=== PATIENT | female | born 1945 | race Caucasian/White ===

== ENCOUNTER 2020-02-07 09:00 | Emergency (ER) | payer OTHER, BC ==
--- NOTE | 2020-02-07 09:45 | PDOC ---
History of Present Illness - General Chief Complaint: Injury Stated Complaint: FALL Time Seen by Provider: 02/07/20 09:45 History Source: Patient Exam Limitations: No Limitations Past History - Medical History Allergies/Adverse Reactions: Allergies Allergy/AdvReac Type Severity Reaction Status Date / Time No Known Drug Allergies Allergy Unverified 05/01/13 15:44 Home Medications: Ambulatory Orders Amlodipine Besylate 10 mg PO DAILY 02/07/20 Atorvastatin Ca [Lipitor] 10 mg PO HS 02/07/20 Ibandronate Sodium [Boniva] 150 mg PO DAILY 02/07/20 Levothyroxine [Synthroid -] 75 mcg PO ASDIR 02/07/20 Montelukast Sodium [Singulair] 10 mg PO DAILY 02/07/20 COPD: No HTN: Yes Seizures: Yes - Immunization History Immunization Up to Date: No - Psycho-Social/Smoking History Smoking History: Never smoked - Substance Abuse Hx (Audit-C & DAST Scrn) How often the patient has a drink containing alcohol: Never Score: In Men: 4 or > Positive; In Women: 3 or > Positive: 0 Screen Result (Pos requires Nsg. Audit-10AR): Negative *Physical Exam - Vital Signs Last Vital Signs Temp Pulse Resp BP Pulse Ox 99 F 74 18 145/74 100 02/07/20 09:15 02/07/20 09:15 02/07/20 09:15 02/07/20 09:15 02/07/20 09:15
[2020-02-07 09:54] VITALS: BP 145/74; PULSE 74; TEMP 99; BMI 26.5
[2020-02-07] MEDS ORDERED: IBUPROFEN 600 MG TABLET (FP) PO ONE ×2 (10:28→10:32)
--- NOTE | 2020-02-07 11:58 | PDOC ---
History of Present Illness - General Chief Complaint: Injury Stated Complaint: FALL Time Seen by Provider: 02/07/20 09:45 History Source: Patient Exam Limitations: No Limitations - History of Present Illness Initial Comments: 02/07/20 11:53 75-year-old female brought in by EMS history of hypertension, hyperlipidemia, thyroid disorder presents complaining of right knee pain status post mechanical slip and fall in her basement at approximately 8:30 AM today. States that she landed directly onto her right knee, denies head strike, neck pain, back pain, chest pain, abdominal pain, nausea, headache, LOC or any other injuries. Patient did not take any pain medication prior to arrival. ROS: Right knee pain PE: GENERAL: well-appearing, NAD HEAD: NCAT EYES: Pupils equal, round and reactive to light, sclera anicteric, conjunctiva clear ENT: pharynx: no erythema, no exudate, uvula midline NECK: supple CHEST: nontender RESP: clear, no w/r/r CARDIO: rrr, no m/g/r ABD: +BS, soft, nontender, non distended BACK: no midline spinal ttp, no CVAT EXTREMITIES: Right knee moderate swelling, bony tenderness to palpation over the patella, patient unable to raise her right lower extremity without bending her knee, no ecchymosis noted, soft compartments above and below the knee NEUROLOGICAL: Unable to bear weight on right lower extremity, normal speech SKIN: Warm, Dry Is this a multiple visit Asthma Patient?: No Past History - Medical History Allergies/Adverse Reactions: Allergies Allergy/AdvReac Type Severity Reaction Status Date / Time No Known Drug Allergies Allergy Unverified 05/01/13 15:44 Home Medications: Ambulatory Orders Amlodipine Besylate 10 mg PO DAILY 02/07/20 Atorvastatin Ca [Lipitor] 10 mg PO HS 02/07/20 Ibandronate Sodium [Boniva] 150 mg PO DAILY 02/07/20 Levothyroxine [Synthroid -] 75 mcg PO ASDIR 02/07/20 Montelukast Sodium [Singulair] 10 mg PO DAILY 02/07/20 COPD: No HTN: Yes Seizures: Yes - Immunization History Immunization Up to Date: No - Psycho-Social/Smoking History Smoking History: Never smoked - Substance Abuse Hx (Audit-C & DAST Scrn) How often the patient has a drink containing alcohol: Never Score: In Men: 4 or > Positive; In Women: 3 or > Positive: 0 Screen Result (Pos requires Nsg. Audit-10AR): Negative *Physical Exam - Vital Signs Last Vital Signs Temp Pulse Resp BP Pulse Ox 99 F 74 18 145/74 100 02/07/20 09:15 02/07/20 09:15 02/07/20 09:15 02/07/20 09:15 02/07/20 09:15 ED Treatment Course - Medications Given in the ED: ED Medications Discontinued Medications Generic Name Dose Route Start Last Admin Trade Name Jarett PRN Reason Stop Dose Admin Ibuprofen 600 mg 02/07/20 10:28 02/07/20 10:36 Motrin - PO 02/07/20 10:29 600 mg ONCE ONE Administration Medical Decision Making - Medical Decision Making 02/07/20 11:58 75-year-old female brought in by EMS history of hypertension, hyperlipidemia, thyroid disorder presents complaining of right knee pain status post mechanical slip and fall in her basement at approximately 8:30 AM today. States that she landed directly onto her right knee, denies head strike, neck pain, back pain, chest pain, abdominal pain, nausea, headache, LOC or any other injuries. Patient did not take any pain medication prior to arrival. Right knee x-ray demonstrates a comminuted, displaced patella fracture I spoke to Dr. Betancourt who reviewed x-rays and suggest we discharged with knee immobilizer and crutches. She is to follow-up with him at the office tomorrow. Patient understands and agrees with this plan P.o. ibuprofen provided Ice applied to the right knee Placed patient in a knee immobilizer Provided crutches with instructions on how to use them Return precautions discussed Discharge - Discharge Information Problems reviewed: Yes Clinical Impression/Diagnosis: Patella fracture Qualifiers: Encounter type: initial encounter Fracture morphology: comminuted Fracture alignment: displaced Laterality: right Condition: Stable Disposition: HOME - Admission No - Follow up/Referral Referrals: Justen Alexis MD [Primary Care Provider] - Jone Betancourt MD [Staff Physician] - - Patient Discharge Instructions Additional Instructions: Follow-up with Dr. Betancourt tomorrow, call his office to schedule an appointment today Wear knee immobilizer and use crutches for ambulation Take ibuprofen 600 mg every 8 hours as needed for pain Rest, elevate the right leg and apply ice several times a day for the next 2 to 3 days Return to the ED if any concerning symptoms - Post Discharge Activity
== END 2020-02-07 12:24 | disposition home or self-care (01) ==
LOC: JER 09:00
DX: S82.001A Unspecified fracture of right patella, initial encounter for closed fracture (principal); W19.XXXA Unspecified fall, initial encounter
CPT/HCPCS: 73562-TC-RT-FY; 99283-25

== ENCOUNTER 2020-02-14 06:54 | Day surgery (SDC) | payer OTHER, BC ==
[2020-02-11 14:13] VITALS: BMI 26.5
[2020-02-14] MEDS ORDERED: LACTATED RINGERS SOLUTION 1,000 ML IV SCH (07:45)
[2020-02-14] MEDS ORDERED: MIDAZOLAM HCL 2 MG/2 ML SINGLE DOSE VIAL ONE ×2 (07:52)
[2020-02-14] MEDS ORDERED: EPHEDRINE SULFATE/0.9% NACL/PF 50 MG/10 ML SYRINGE NR ONE (07:54)
[2020-02-14] MEDS ORDERED: SUCCINYLCHOLINE CHLORIDE 200 MG/10 ML SYRINGE ONE (07:54)
[2020-02-14] MEDS ORDERED: PROPOFOL 20 ML ONE ×2 (09:05→09:16)
--- NOTE | 2020-02-14 09:05 | OP ---
Operative Note - Note: Operative Date: 02/14/20 Pre-Operative Diagnosis: Right patella fracture Operation: Right patella ORIF Implants: Arthrex 2.4mm cortical screws x3, [employer] q-fix anchors x2 Post-Operative Diagnosis: Same as Pre-op Surgeon: Dre Foster [employer] Manager: Cait Orona Anesthesia: General Operative Report Dictated: Yes
--- NOTE | 2020-02-14 13:27 | OP ---
DATE OF OPERATION: 02/14/2020 PREOPERATIVE DIAGNOSIS: Right knee patellar fracture. POSTOPERATIVE DIAGNOSIS: Right knee patellar fracture. PROCEDURE: Right knee open reduction and internal fixation/patellar tendon advancement. IMPLANTS: Arthrex 2.4-mm cortical screws x3, [employer] Q-FIX anchors x2. BLOOD LOSS: 50 mL. POSTOPERATIVE CONDITION: Stable. COMPLICATIONS: None. INDICATIONS: This is a 75-year-old female who suffered a fall onto her right knee. She was found to have a comminuted and displaced patellar fracture. Treatment options were discussed including nonoperative versus operative management. Operative management was highly recommended to restore the extensor function. I viewed operative risks including bleeding, infection, neurovascular injury, need for other surgery, postoperative pain and stiffness, nonunion, malunion, hardware failure, or cutout. We discussed the medical risks such as heart attack, stroke, DVT, PE, and . I addressed the use of perioperative antibiotic and DVT prophylaxis. I reviewed the lengthy rehabilitation protocol. I addressed all the patient's questions and concerns. She voiced understanding and elected to proceed. DESCRIPTION OF PROCEDURE: Patient was brought to the operating room where general anesthesia was administered. A regional block had been applied in the preoperative holding area. The right lower extremity was prepped and draped in the usual sterile fashion. A preoperative dose of antibiotics was given, and the usual timeout procedure was performed. The incision was now planned out in the midline over the patella. This was carried down through skin and subcutaneous tissue. Electrocautery was used to maintain hemostasis. After spreading through the fascia, the fracture site was identified. Hematoma was evacuated. Curet and rongeur were used to debride any soft callus. Proximal fragment was now identified. There was 1 main fragment sitting more medially. There was a secondary fracture fragment with an articular section on it, approximately 7 mm across on the more lateral side. Distally, there was an intermediate fragment with articular surface, which was minimally attached to soft tissue. The distal pole of the patella was highly comminuted without any major cortical fragments despite the appearance of a cortical fragment on plain film radiography. After adequately debriding the site, it was decided to try to restore the articular surface of the intermediate fragment as well as the proximal fragment. The mid-articular fragment was held in place with a Jose J wire after manually reducing. This was then secured in place using two 2.4-mm screws. Fracture reduction hardware placement was verified fluoroscopically and visually and was satisfactory. The articular surface was congruent on palpation. The more lateral fragment proximally was now clamped into place, fixed with a K-wire and also affixed with a single 2.4-mm screw. Having secured the more proximal piece, attention was now turned distally. Given that there was no fragment of any size to put a screw into, it was decided to perform a soft tissue repair. Any nonviable bony fragments were debrided. Two Q-FIX anchors were now drilled into the more mid-portion of the proximal fragment in the A-to-P direction. The Q-FIXES were deployed, and excellent purchase was achieved. The patellar tendon was then whipstitched and then tied back into place onto the inferior portion of the proximal fragment. After this, fluoroscopy was used to verify both fracture reduction and hardware placement. Both were satisfactory. The wound was then copiously irrigated. The retinaculum was then closed using No. 1 Vicryl in the medial and lateral sides. It should be noted the retinacular tear extended snf back to the posterior aspect of the knee on both sides. The subcutaneous tissue was then approximated deep using 0 Vicryl. Subcutaneously, more superficially, this was closed using 2-0 Vicryl. The skin was closed using running 3-0 nylon. Sterile dressings were placed. The patient was placed into a well-padded, cylinder-type cast. She was extubated and transferred to recovery room in stable condition. Sherry BALBUENA/[id number]
[2020-02-14 13:46] VITALS: BP 109/62; PULSE 71
[2020-02-14 13:49] VITALS: TEMP 98
== END 2020-02-14 14:15 | disposition home or self-care (01) ==
LOC: FASU 06:54
PROVIDERS: ATTEND Orthopaedic Surgery Sports Medicine
PROC: 0QSD04Z Reposition Right Patella with Internal Fixation Device, Open Approach (ICD-10-PCS; principal; 2020-02-14 09:25)
DX: S82.041A Displaced comminuted fracture of right patella, initial encounter for closed fracture (principal); X58.XXXA Exposure to other specified factors, initial encounter; Y93.9 Activity, unspecified; Y92.9 Unspecified place or not applicable
CPT/HCPCS: 73560-TC-RT-FY; 94760

== ENCOUNTER 2022-04-19 11:06 | Emergency (ER) | payer OTHER, BC ==
[2022-04-19 11:17] VITALS: BP 127/57; PULSE 74; RESP 20; TEMP 98.2; BMI 26.3
[2022-04-19] MEDS ORDERED: TETANUS AND DIPHTHERIA TOXOID 0.5 ML DISP.SYRIN IM ONE (13:28)
[2022-04-19] MEDS ORDERED: DIPHTH,PERTUSS(ACELL),TET 0.5 ML DISP.SYRIN IM ONE ×2 (13:30→13:32)
== END 2022-04-19 13:41 | disposition home or self-care (01) ==
LOC: FER 11:06
PROC: 0HQ0XZZ Repair Scalp Skin, External Approach (ICD-10-PCS; principal; 2022-04-19)
PROC: 3E0234Z Introduction of Serum, Toxoid and Vaccine into Muscle, Percutaneous Approach (ICD-10-PCS; 2022-04-19)
DX: S09.90XA Unspecified injury of head, initial encounter (principal); S01.01XA Laceration without foreign body of scalp, initial encounter; W01.198A Fall on same level from slipping, tripping and stumbling with subsequent striking against other object, initial encounter
CPT/HCPCS: 12001-25; 70450-TC; 72125-TC; 90471; 90715; 99284-25

== ENCOUNTER 2022-04-27 14:20 | Emergency (ER) | payer OTHER, BC ==
[2022-04-27 16:24] VITALS: BP 145/67; PULSE 66; RESP 18; TEMP 98; BMI 27.4
== END 2022-04-27 16:24 | disposition home or self-care (01) ==
LOC: FER 14:20
DX: Z48.02 Encounter for removal of sutures (principal)
CPT/HCPCS: 99281-25